=== PATIENT | female | born 1970 ===

== ENCOUNTER 2021-04-09 08:22 | Emergency (ER) | payer OTHER ==
[~2021-04-09] VITALS: Ht 165.1 cm; Wt 86.2 kg
[2021-04-09 08:25] VITALS: BP 114/85
== END 2021-04-09 09:19 | disposition home or self-care (01) ==
LOC: ER 08:22
DX: S00.03XA Contusion of scalp, initial encounter (principal); W20.8XXA Other cause of strike by thrown, projected or falling object, initial encounter; Y93.89 Activity, other specified; Y92.89 Other specified places as the place of occurrence of the external cause; Y99.8 Other external cause status

== ENCOUNTER 2022-11-26 22:31 | Inpatient (IN) | payer MEDICAID, OTHER ==
[~2022-11-26] VITALS: Ht 165.1 cm; Wt 88.5 kg
[2022-11-26 22:52] VITALS: PULSE 189; RESP 14; O2SAT 98
[2022-11-26] MEDS ORDERED: dilTIAZem 25 MG/5 ML VIAL IV ONE ×2 (23:00→23:30)
[2022-11-26] MEDS ORDERED: SODIUM CHLORIDE 0.9% 1,000 ML IV ONE (23:00)
[2022-11-26 23:16] LABS: Basophils # (auto) 0 10 ^3/uL (0-0.2); Basophils % (auto) 0.4 % (0.0-2.0); Eosinophils # (auto) 0.1 10 ^3/uL (0-0.8); Hematocrit 36.5 % (36.0-46.0); Hemoglobin 11.8 g/dL (12.2-16.2); Lymphocytes # (auto) 3.8 10 ^3/uL (0.4-5.4); Lymphocytes % (auto) 37.5 % (10.0-50.0); Mean Corpuscular Hemoglobin 27.7 pg (28.0-32.0); Mean Corpuscular Hgb Conc. 32.3 g/dL (32.0-36.0); Mean Corpuscular Volume 85.8 fL (80.0-100.0); Monocytes % (auto) 9.6 % (0.0-12.0); Neutrophils # (auto) 5.2 10 ^3/uL (1.6-8.6); Neutrophils % (auto) 51.5 % (37.0-80.0); Red Blood Cells 4.26 10^6/uL (4.0-5.20); Red Cell Distribution Width 15.1 % (11.8-14.3); White Blood Cell 10.1 10^3/uL (4.4-10.8)
[2022-11-26 23:31] LABS: INR 1.14 (0.9-1.15); Partial Thromboplastin Time 27.6 SEC (24.5-34.5)
[2022-11-26 23:32] LABS: Albumin 3.3 g/dL (3.4-5.0); BUN/Creatinine Ratio 31.4 (10.0-20.0); Calcium 7.9 mg/dL (8.5-10.1); Magnesium 2.1 mg/dL (1.6-2.6); Potassium 3.5 mmol/L (3.5-5.1)
[2022-11-26 23:35] LABS: Bilirubin, Total 0.2 mg/dL (0.2-1.0); Total Protein 7.4 g/dL (6.4-8.2)
[2022-11-27 01:25] LABS: Urine Bacteria FEW /hpf (None Seen); Urine Blood Negative /uL (Negative); Urine Specific Gravity 1.008 (1.001-1.035); Urine WBC 1 /hpf (0 - 5)
[2022-11-27] MEDS ORDERED: MORPHINE SULFATE INJ 2 MG/ml SYRG IV PRN (02:45)
[2022-11-27] MEDS ORDERED: ONDANSETRON HCL 4 MG/2 ML VIAL IV PRN (02:45)
[2022-11-27] MEDS ORDERED: NITROGLYCERIN 0.4 MG SL TAB SL PRN (02:45)
[2022-11-27] MEDS ORDERED: ACETAMINOPHEN 500 MG TAB PO ONE (09:00)
[2022-11-27] MEDS ORDERED: DIGOXIN 0.125 MG TAB PO SCH (10:00)
[2022-11-27 10:07] LABS: Albumin 3.2 g/dL (3.4-5.0); BUN/Creatinine Ratio 21.2 (10.0-20.0); Calcium 8.4 mg/dL (8.5-10.1); Magnesium 2.5 mg/dL (1.6-2.6); Potassium 3.7 mmol/L (3.5-5.1)
[2022-11-27 10:09] LABS: Bilirubin, Total 0.4 mg/dL (0.2-1.0); Total Protein 7.4 g/dL (6.4-8.2)
[2022-11-27 10:14] LABS: Basophils # (auto) 0 10 ^3/uL (0-0.2); Basophils % (auto) 0.4 % (0.0-2.0); Eosinophils # (auto) 0.1 10 ^3/uL (0-0.8); Eosinophils % (auto) 0.7 % (0.0-7.0); Hematocrit 35.2 % (36.0-46.0); Hemoglobin 11.4 g/dL (12.2-16.2); Lymphocytes # (auto) 1.5 10 ^3/uL (0.4-5.4); Lymphocytes % (auto) 20.4 % (10.0-50.0); Mean Corpuscular Hemoglobin 27.7 pg (28.0-32.0); Mean Corpuscular Hgb Conc. 32.2 g/dL (32.0-36.0); Mean Corpuscular Volume 85.9 fL (80.0-100.0); Monocytes # (auto) 0.6 10 ^3/uL (0-1.3); Monocytes % (auto) 7.5 % (0.0-12.0); Neutrophils # (auto) 5.3 10 ^3/uL (1.6-8.6); Nucleated Red Blood Cells % 0.1 %; White Blood Cell 7.4 10^3/uL (4.4-10.8)
[2022-11-27 10:16] LABS: Cholesterol 197 mg/dL (< 200)
[2022-11-27 10:19] LABS: HDL Cholesterol 76 mg/dL (40-59); LDL Cholesterol 108 mg/dL (< 100); Triglycerides 75 mg/dL (< 150)
[2022-11-27] MEDS: APIXABAN 5 MG TAB PO SCH ×2 (10:36→21:41)
[2022-11-27] MEDS: DRONEDARONE HCL 400 MG TAB PO SCH ×2 (10:37→21:51)
[2022-11-27] MEDS: METOPROLOL TARTRATE 25 MG TAB PO SCH ×2 (10:37→21:57)
[2022-11-27 19:38] VITALS: PULSE 67; RESP 16; O2SAT 95
[2022-11-27] MEDS ORDERED: ATORVASTATIN 20 MG TAB PO SCH (22:00)
[2022-11-27 22:26] VITALS: BP 113/69; PULSE 61; RESP 20; TEMP 97.7; O2SAT 100
[2022-11-27 23:00] VITALS: BP 112/71; PULSE 64; RESP 16; TEMP 97.7
[2022-11-27 23:02] VITALS: PULSE 64; RESP 16; O2SAT 97
[2022-11-28] MEDS ORDERED: APIX5TAB PO (02:08)
[2022-11-28] MEDS ORDERED: METO25TA5 PO (02:09)
[2022-11-28] MEDS ORDERED: DIGO0.25 PO (02:10)
[2022-11-28] MEDS ORDERED: FLUO-126 PO (02:10)
[2022-11-28] MEDS ORDERED: METO25TA93 PO (02:47)
[2022-11-28 05:00] VITALS: BP 118/68; PULSE 63; RESP 17; TEMP 97.6; O2SAT 96
[2022-11-28 06:56] LABS: BUN/Creatinine Ratio 24.6 (10.0-20.0); Calcium 8.5 mg/dL (8.5-10.1); Potassium 3.7 mmol/L (3.5-5.1)
[2022-11-28 06:57] LABS: Basophils # (auto) 0 10 ^3/uL (0-0.2); Basophils % (auto) 0.5 % (0.0-2.0); Eosinophils # (auto) 0.1 10 ^3/uL (0-0.8); Eosinophils % (auto) 1.7 % (0.0-7.0); Hematocrit 35.2 % (36.0-46.0); Hemoglobin 11.5 g/dL (12.2-16.2); Lymphocytes # (auto) 1.8 10 ^3/uL (0.4-5.4); Lymphocytes % (auto) 25.7 % (10.0-50.0); Mean Corpuscular Hgb Conc. 32.6 g/dL (32.0-36.0); Mean Corpuscular Volume 85.9 fL (80.0-100.0); Monocytes # (auto) 0.7 10 ^3/uL (0-1.3); Monocytes % (auto) 9.9 % (0.0-12.0); Neutrophils # (auto) 4.3 10 ^3/uL (1.6-8.6); Neutrophils % (auto) 62.2 % (37.0-80.0); Nucleated Red Blood Cells % 0.1 %; White Blood Cell 6.9 10^3/uL (4.4-10.8)
[2022-11-28 08:00] VITALS: BP 118/76; PULSE 34; PULSE 60; PULSE 81; RESP 17; RESP 18; TEMP 97.6; O2SAT 96
[2022-11-28 09:00] VITALS: BP 118/73; PULSE 60; RESP 17; TEMP 97.6; O2SAT 96
[2022-11-28] MEDS: APIXABAN 5 MG TAB PO SCH (09:10)
[2022-11-28] MEDS: METOPROLOL TARTRATE 25 MG TAB PO SCH (09:11)
[2022-11-28] MEDS ORDERED: MAGNESIUM OXIDE 400 MG TAB PO SCH (10:00)
[2022-11-28] MEDS ORDERED: DIGOXIN 0.25 MG TAB PO SCH (10:00)
[2022-11-28] MEDS ORDERED: dilTIAZem HCL 180MG ER CAP PO SCH (10:00)
[2022-11-28] MEDS ORDERED: DILT-102 PO (10:23)
[2022-11-28] MEDS ORDERED: DRON400T PO (10:24)
[2022-11-28] MEDS: DRONEDARONE HCL 400 MG TAB PO SCH (11:32)
[2022-11-28 11:55] VITALS: BP 119/73; PULSE 60; RESP 18; TEMP 97.6; O2SAT 96
== END 2022-11-28 13:53 | disposition home or self-care (01) | DRG 201 ==
LOC: EDBD 22:31 → ER 22:33 → TELE 11-27 02:47 → TELE-CENTR 11-27 21:25
PROVIDERS: ADMIT Internal Medicine; ATTEND Nurse Practitioner
DX: I48.0 Paroxysmal atrial fibrillation (principal); I21.A1 Myocardial infarction type 2; E66.9 Obesity, unspecified; E78.5 Hyperlipidemia, unspecified; I10 Essential (primary) hypertension; G43.909 Migraine, unspecified, not intractable, without status migrainosus; Z68.32 Body mass index [BMI] 32.0-32.9, adult; R73.03 Prediabetes
CPT/HCPCS: 36415; 70450; 71045; 80048; 80053; 80061; 80162; 81001; 83036; 83605; 83735; 83880; 84443; 84484; 85025; 85379; 85610; 85730; 87040; 93005; 93306; 96361; 96374; 96376; G0378